=== PATIENT | male | born 1955 | race Caucasian/White ===

== ENCOUNTER → 2023-10-01 08:09 | Outpatient (REF) | payer BC, SELFPAY | LOC: RAD 08:09 | PROVIDERS: ATTENDING PHYSICIAN Surgery Vascular Surgery; FAMILY PHYSICIAN Family Medicine | DX: I73.9 Peripheral vascular disease, unspecified (principal) | CPT/HCPCS: 93922; 93925 ==

== ENCOUNTER 2023-11-17 19:09 | Emergency (ER) | payer BC, SELFPAY ==
[2023-11-17 19:11] VITALS: BP 175/77; BMI 32.2
--- NOTE | 2023-11-17 21:28 | ED.GENMED ---
History of Present Illness
General
Chief Complaint: Foreign Body Removal
Source: patient
Exam Limitations: none
Time Seen by Provider: 11/17/23 19:41
Nursing documentation reviewed up to this point in time: agreed with
Travel History
Have you had any contact with someone who has COVID-19?: No
Do you have any symptoms of coronavirus? Fever > 100 degrees, chills, cough, shortness of breath, sore throat, loss of taste or smell, muscle aches, or headache?: No
History of Present Illness
History of Present Illness:
Patient states he injected insulin to right upper lateral thigh yesterday and needle tip broke. H waited until today to go to . Femur xray reveals metallic fb to medial left knee. Sent to ED for eval. He denies any pain. AMbulating without
difficulty.
Past History
Past History
ED Past Medical History: CAD, COPD (Questionable), GERD, HTN, Hypercholesterolemia, IDDM, AL, Psychiatric (Anxiety) and Other (PNA)
ED Past Surgical History: Cardiac (Triple bypass)
Social History
Tobacco: Former smoker
Alcohol: Daily (Beer and Shots, mixed drinks At least 6 or more)
Personal:
Living: alone
Review of Systems
Review of Systems
Allergies reviewed?: Yes
All Other Systems: ROS reviewed and negative except as documented in HPI and ROS
Constitutional: Reports no symptoms
Musculoskeletal: Reports no symptoms
Skin: Reports other (reports infecting insulin to right upper lateral thigh and needle broke in thigh. Xray reveals metallic FB to right medial knee)
Neurological: Reports no symptoms
Psychiatric: Reports no symptoms
Phy Exam
General Physical Exam
General Presentation: well appearing and no apparent distress
General age: appears stated age
General Skin: warm and dry
General Habitus: normal
General Mental: alert
General Hydration: appears well hydrated
Musculoskeletal Exam
Musculoskeletal Exam: full ROM (No joint redness or swelling) and neuro vasc intact
Skin Exam
Skin Exam: normal color, warm/dry, no rash and other (No injection sited noted right lateral thigh. Tiny puncture noted right medial knee)
Psychiatric Exam
Psychiatric Exam: normal mood/affect
Course
Orders/Labs/Results
Orders:
Orders
11/17/23 20:30
Knee, Right 4 or More Views [CR Knee- Right 4 Or More View*] Urgent
Comment:
Reason For Exam: foreign body
Vital Signs
Initial and Last Documented VS:
Initial Vital Signs
Temp Pulse Resp BP Pulse Ox
98.4 F 76 18 175/77 99
11/17/23 19:11 11/17/23 19:11 11/17/23 19:11 11/17/23 19:11 11/17/23 19:11
Last Documented Vital Signs
Temp Pulse Resp BP Pulse Ox
98.4 F 76 18 175/77 99
11/17/23 19:11 11/17/23 19:11 11/17/23 19:11 11/17/23 19:11 11/17/23 19:11
*Radiology
Radiology exam reviewed: radiology read reviewed
*Pulse Oximetry
Patient hypoxic: no
*Critical Care Note
Total Time (30-74mins, 75-104mins- exclusive of procedures): Not Applicable
Update Note
Update Note:
Patient to ED for FB retreval. Sent by . States his insulin needle broke whle he was injecting yessterday. States he injected to right lateral thigh. No FB detected at this site. Metallic FB noted to right medial thigh. Dr. Silva notified
of patient report. Xrays sent via tiger text. Patient will be discharged tonight shahid will follow up in office. He was instructed to call office in AM for appointment time.
ED Attending Note
-
Portions of this chart may have been created with voice recognition software.� Occasional wrong word or��sound alike� substitutions may have occurred due to the inherent limitations of voice recognition software.
Discharge Plan
Departure
Patient Disposition: Home (Routine Discharge)
Date of Disposition: 11/17/23
Time of Disposition: 21:09
Patient with high blood pressure during this ER visit?: No
Condition: Good
Covid-19: Not Applicable
Discharge Problem:
Foreign body of right knee
Instructions: Foreign Body in Skin (DC)
Prescriptions:
No Action
valsartan 80 mg Tablet
80 mg PO DAILY
isosorbide dinitrate 30 mg Tablet
30 mg PO BID
insulin glargine [Basaglar KwikPen U-100 Insulin] 100 unit/mL (3 mL) Insulin Pen
45 unit SC DAILY
carvedilol 12.5 mg Tablet
12.5 mg PO BID Qty: 30 0RF
thiamine HCl (vitamin B1) 100 mg Tablet
100 mg PO BID Qty: 0 0RF
folic acid 1 mg Tablet
1 mg PO DAILY Qty: 0 0RF
furosemide 40 mg tablet
40 mg PO DAILY Qty: 30 0RF
atorvastatin 80 MG tablet
80 mg PO QPM Qty: 30 3RF
clopidogrel 75 MG tablet
75 mg PO DAILY Qty: 30 3RF
Referrals:
Kilo Silva MD [Active] - Call in 1-3 days for appt
Burak Kat MD [Family Provider] -
Interventions
Interventions:
*Risk Screen - Suicide Last Done: 11/17/23 19:11
*General Assessment Last Done: 11/17/23 20:33
*Neglect/Abuse Screening Last Done: 11/17/23 19:11
ED- Fall Risk Assessment Last Done: 11/17/23 19:11
*ED COVID-19 Vaccine History Last Done: 11/17/23 20:33
*Nursing Disposition Last Done: 11/17/23 21:23
Discharge Date and Time
Discharge Date/Time: 11/17/23 21:28
Print Language: SUDANESE
== END 2023-11-17 21:28 | disposition home or self-care (01) ==
LOC: EMR 19:09
PROVIDERS: EMERGENCY PHYSICIAN Emergency Medicine; FAMILY PHYSICIAN Family Medicine
DX: S70.352A Superficial foreign body, left thigh, initial encounter (principal); W45.8XXA Other foreign body or object entering through skin, initial encounter; Z87.891 Personal history of nicotine dependence
CPT/HCPCS: 99283; 73564

== ENCOUNTER → 2024-05-15 08:54 | Outpatient (REF) | payer BC, SELFPAY | LOC: RAD 08:54 | PROVIDERS: ATTENDING PHYSICIAN Surgery Vascular Surgery; FAMILY PHYSICIAN Family Medicine | DX: I73.9 Peripheral vascular disease, unspecified (principal); I71.40 Abdominal aortic aneurysm, without rupture, unspecified | CPT/HCPCS: 36415; 76770; 93922; 93925 ==